=== PATIENT | female | born 1955 | race Caucasian/White ===

== ENCOUNTER 2018-07-27 09:19 | Emergency (ER) | payer BC ==
[2018-07-27 09:44] VITALS: BP 107/73
--- NOTE | 2018-07-27 09:58 | ED ---
Skin Complaint - HPI Summary HPI Summary: Cat bite Saturday. Shots UTD and it is her own cat. Left thumb two puncture wounds. No pain with movement if the thumb joints. No DM. - History of Current Complaint Chief Complaint: UCBiteInjury Time Seen by Provider: 07/27/18 09:38 Stated Complaint: CAT BITE-LEFT THUMB Hx Obtained From: Patient Hx Last Menstrual Period: 24 yrs Onset/Duration: Still Present Timing: Lasting Days Onset Severity: Moderate Current Severity: Moderate Pain Intensity: 1 Skin Location: Discrete Character: Redness, Painful Aggravating Symptom(s): Touch Alleviating Symptom(s): Nothing Associated Signs & Symptoms: Tenderness - Allergy/Home Medications Allergies/Adverse Reactions: Allergies Allergy/AdvReac Type Severity Reaction Status Date / Time Sulfa (Sulfonamide Allergy Hives Verified 07/27/18 09:45 Antibiotics) avoids NSAIDS Allergy Unknown Uncoded 01/28/13 09:06 Reaction Details Home Medications: Home Medications Calcium Carbonate [Super Calcium] 600 mg PO DAILY 07/27/18 [History Confirmed ] Venlafaxine ER (NF) [Effexor ER (NF)] 150 mg PO DAILY 07/27/18 [History Confirmed 07/27/18] PMH/Surg Hx/FS Hx/Imm Hx Previously Healthy: Yes - Surgical History Surgery Procedure, Year, and Place: hysterectomy. appendectomy. gallbladder. 2 C-sections. gastric bypass 2011 Infectious Disease History: No Infectious Disease History: Denies: Traveled Outside the [place] in Last 30 Days - Social History Alcohol Use: Rare Substance Use Type: Reports: None Smoking Status (MU): Never Smoked Tobacco Review of Systems Constitutional: Negative Positive: Other - tenderness. All Other Systems Reviewed And Are Negative: Yes Physical Exam Triage Information Reviewed: Yes Vital Signs On Initial Exam: Initial Vitals Temp Pulse Resp BP Pulse Ox 99.1 F 71 16 107/73 100 07/27/18 09:38 07/27/18 09:38 07/27/18 09:38 07/27/18 09:38 07/27/18 09:38 Vital Signs Reviewed: Yes Appearance: Positive: Well-Appearing, No Pain Distress, Well-Nourished Skin: Positive: Warm, Other - two Puncture wounds not overlying the joint. Skin is tender. Eyes: Positive: Normal, EOMI ENT: Positive: Normal ENT inspection Neck: Negative: Nuchal Rigidity Respiratory/Lung Sounds: Negative: Unable to speak in full sentences, Fatigue Cardiovascular: Positive: Normal - cap refill intact. Abdomen Description: Negative: Distended Musculoskeletal: Positive: Other - left thumb full rom and no pain with rom testing. Neurological: Positive: Normal, Alert, Oriented to Person Place, Time Psychiatric: Positive: Normal, Affect/Mood Appropriate Diagnostics - Vital Signs Vital Signs Temp Pulse Resp BP Pulse Ox 07/27/18 09:38 99.1 F 71 16 107/73 100 - Laboratory Lab Statement: Any lab studies that have been ordered have been reviewed, and results considered in the medical decision making process. Course/Dx - Diagnoses Provider Diagnoses: Cat bite Discharge - Sign-Out/Discharge Documenting (check all that apply): Patient Departure All imaging exams completed and their final reports reviewed: No Studies - Discharge Plan Condition: Good Disposition: HOME Prescriptions: Amoxicillin/Clavulanate TAB* [Augmentin TAB 875*] 875 mg PO BID #14 tab Patient Education Materials: Animal Bite (ED) Referrals: Dorys Brock MD [Primary Care Provider] - - Billing Disposition and Condition Condition: GOOD Disposition: Home
== END 2018-07-27 09:58 | disposition home or self-care (01) ==
LOC: UCCORT 09:19
DX: S61.032A Puncture wound without foreign body of left thumb without damage to nail, initial encounter (principal); W55.01XA Bitten by cat, initial encounter; Y92.9 Unspecified place or not applicable; Z88.2 Allergy status to sulfonamides; Z88.8 Allergy status to other drugs, medicaments and biological substances
CPT/HCPCS: 99202; G0463

== ENCOUNTER 2018-08-22 16:34 | Emergency (ER) | payer BC ==
[2018-08-22 17:26] VITALS: BP 126/81
--- NOTE | 2018-08-22 17:58 | UC ---
UC General HPI - HPI Summary HPI Summary: INCREASING PAIN, REDNESS AND SWELLING AROUND l GREAT TOE NAIL SINCE YESTERDAY. SHE HAS BEEN SOAKING IT WHICH FEELS GOOD BUT ISN'T HELPING. - History of Current Complaint Chief Complaint: [place] Stated Complaint: LT GREAT TOE COMPLAINT Time Seen by Provider: 08/22/18 17:52 Hx Obtained From: Patient Hx Last Menstrual Period: 24 yrs Onset/Duration: Gradual Onset Timing: Constant Pain Intensity: 6 Associated Signs & Symptoms: Negative: Fever - Allergy/Home Medications Allergies/Adverse Reactions: Allergies Allergy/AdvReac Type Severity Reaction Status Date / Time Sulfa (Sulfonamide Allergy Hives Verified 08/22/18 17:27 Antibiotics) avoids NSAIDS Allergy Unknown Uncoded 08/22/18 17:27 Reaction Details PMH/Surg Hx/FS Hx/Imm Hx Psychological History: Depression - Surgical History Surgical History: Yes Surgery Procedure, Year, and Place: hysterectomy. appendectomy. gallbladder. 2 C-sections. gastric bypass 2011 - Family History Known Family History: Positive: Non-Contributory - Social History Occupation: Employed Full-time Alcohol Use: Rare Substance Use Type: None Smoking Status (MU): Never Smoked Tobacco - Immunization History Most Recent Tetanus Shot: tdap 2009 Vaccination Up to Date: Yes Review of Systems All Other Systems Reviewed And Are Negative: No Constitutional: Negative: Fever Skin: Positive: Rash - l great toe Musculoskeletal: Negative: Arthralgia, Decreased ROM Neurological: Negative: Numbness Physical Exam Triage Information Reviewed: Yes Appearance: Well-Appearing Vital Signs: Initial Vital Signs Temp 98.3 F 08/22/18 17:21 Pulse 77 08/22/18 17:21 Resp 16 08/22/18 17:21 BP 126/81 08/22/18 17:21 Pulse Ox 99 08/22/18 17:21 Vital Signs Reviewed: Yes Eyes: Positive: Conjunctiva Clear Cardiovascular: Positive: RRR Musculoskeletal: Positive: Other: - L foot=great toe has redness and swelling around the nail bed which is tender to palpation. toe has gross s/v/m function. rest of foot is unremarkable. Pressure applied to the cuticle but nothing drained. Neurological: Positive: Alert Psychological: Positive: Age Appropriate Behavior Skin Exam: Normal Course/Dx - Diagnoses Provider Diagnosis: Paronychia of fifth toe, left Discharge - Sign-Out/Discharge Documenting (check all that apply): Patient Departure All imaging exams completed and their final reports reviewed: No Studies - Discharge Plan Condition: Stable Disposition: HOME Prescriptions: Cephalexin CAP* [Keflex CAP*] 500 mg PO TID 10 Days #30 cap Patient Education Materials: Edgardo (ED) Referrals: Dorys Brock MD [Primary Care Provider] - 5 Days - Billing Disposition and Condition Condition: STABLE Disposition: Home
== END 2018-08-22 18:25 | disposition home or self-care (01) ==
LOC: UCCORT 16:34
DX: L03.032 Cellulitis of left toe (principal); Z88.6 Allergy status to analgesic agent; Z88.2 Allergy status to sulfonamides
CPT/HCPCS: 99212; G0463